=== PATIENT | female | born 1985 | race African-American/Black ===

== ENCOUNTER 2018-07-28 08:19 | Inpatient (IN) | payer SELFPAY ==
[2018-07-28 08:42] LABS: #Basophils 0.1 thou/uL (0.0-0.2); #Eosinphils 0.4 thou/uL (0.0-0.7); #Lymphocytes 2.3 thou/uL (1.20-3.40); #Monocytes 0.4 thou/uL (0.11-0.59); #Neutrophils 6.1 thou/uL (1.40-6.50); %Eosinophils 4.1 % (0.0-10.0); %Lymphocytes 24.6 % (21.0-51.0); %Monocytes 4.5 % (0.0-10.0); %Neutrophils 65.7 % (42.0-75.0); Hemoglobin 13.1 g/dL (12.0-16.0); Mean Corpuscular HGB CONC 32.6 g/dL (32.0-36.0); Mean Corpuscular Hemoglobin 28.4 pg (27.0-31.0); Mean Corpuscular Volume 87.1 fL (78.0-98.0); Mean Platelet Volume 6.8 fL (7.4-10.4); Platelet Count 460 thou/uL (130-400); RBC Distribution Width 11.9 % (11.5-14.5); White Blood Cell (WBC) Count 9.2 thou/uL (4.8-10.8)
[2018-07-28 08:49] LABS: INR-International Normal Ratio 0.9; PTT 32.9 SEC (22.9-36.1); Prothrombin Time 12.4 SEC (12.0-14.7)
[2018-07-28 08:50] LABS: BHCG - Serum Negative (NEGATIVE); Pregs Control Background? CLEAR/WHITE (CLR/WHITE); Pregs Control Bar Appear? YES (CONTROL BAR)
[2018-07-28 09:04] LABS: ALT (SGPT) 9 U/L (8-55); AST (SGOT) 13 U/L (5-34); Acetaminophen Less than 6.0 mcg/mL (10.0-30.0); Alcohol Less than 10 mg/dL (Less than 10); Alkaline Phosphatase 114 U/L (40-150); Anion Gap 13 mmol/L (10-20); BUN (Urea Nitrogen) 10 mg/dL (7.0-18.7); Bilirubin, Total 0.2 mg/dL (0.2-1.2); Calc. Creatinine Clearance 0 mL/min (70-130); Calcium 9.8 mg/dL (7.8-10.44); Carbon Dioxide 19 mmol/L (22-29); Chloride 109 mmol/L (98-107); Estimated GFR-MDRD Greater than 90; Globulin 3.3 g/dL (2.4-3.5); Glucose 77 mg/dL (70-105); Potassium 4.1 mmol/L (3.5-5.1); Protein, Total 7.3 g/dL (6.0-8.3); Salicylate Less than 8.0 mg/dL (15.0-30.0); Sodium 137 mmol/L (136-145)
[2018-07-28] MEDS ORDERED: Aspirin 325 MG TAB ONE (09:35)
--- NOTE | 2018-07-28 10:32 | CT ---
CT HEAD WITHOUT CONTRAST: Date: 07/28/18 Multiple axial tomograms obtained through the head without IV enhancement. INDICATION: Stroke alert. Left-sided weakness. FINDINGS: Ventricles have normal size and position. There is no evidence of intracranial mass or hemorrhage. No evidence of acute infarct. Sinuses and mastoids are clear. IMPRESSION: No acute findings. Findings relayed to Dr. Richey at 0832 hours. CODE CR. POS: OFF
--- NOTE | 2018-07-28 10:45 | CT ---
CTA HEAD WITH CONTRAST: Multiple axial tomograms obtained through the head following angio protocol with multiplanar reconstr uction and 3D postprocessing. INDICATION: Stroke alert. Left side weakness. FINDINGS: The intracranial internal carotid arteries are patent. M1 segment of both middle cerebral arteries ar e patent and symmetric. The M2 and M3 branches appear symmetric. Basilar artery patent. Posterior cer ebrals appear patent. IMPRESSION: Unremarkable CTA head. CTA NECK: Multiple axial tomograms obtained through neck following angio protocol with multiplanar reconstructi on and 3D postprocessing. INDICATION: Stroke alert. Left side weakness. FINDINGS: Origin of arch vessels unremarkable. Common carotid artery unremarkable bilaterally. Carotid bifurcations unremarkable bilaterally. Internal carotid arteries patent and symmetric. Vertebral arteries patent and symmetric. IMPRESSION: Unremarkable CTA neck. POS: OFF
[2018-07-28] MEDS ORDERED: Zolpidem Tartrate 5 MG TAB PO PRN (10:54)
[2018-07-28] MEDS ORDERED: Senokot S 8.6-50 MG TAB PO PRN (10:54)
[2018-07-28] MEDS ORDERED: Loperamide HCl 2 MG CAP PO PRN (10:54)
[2018-07-28] MEDS ORDERED: Ondansetron PF 4 MG/2 ML Vial IVP PRN (10:54)
[2018-07-28] MEDS ORDERED: Ondansetron ODT 4 MG TAB PO PRN (10:54)
[2018-07-28] MEDS ORDERED: Calcium Carbonate 500 MG ChewTAB PO PRN (10:54)
[2018-07-28] MEDS ORDERED: Bisacodyl 5 MG TAB PO PRN (10:54)
[2018-07-28] MEDS ORDERED: hydrALAZINE 20 MG/ML VIAL SLOW IVP PRN (10:54)
[2018-07-28 10:55] LABS: Amphetamine Not Detected (NotDetected); Barbiturates Screen Not Detected (NotDetected); Benzodiazepine Screen Not Detected (NotDetected); Cocaine Metabolite Screen Not Detected (NotDetected); Medtox Control Line Valid? VALID (VALID); Medtox Reader # READER 4; Methadone Not Detected (NotDetected); Methamphetamine Not Detected (NotDetected); Opiate Screen Not Detected (NotDetected); Oxycodone Screen Not Detected (NotDetected); Phencyclidine (PCP) Not Detected (NotDetected); THC/Cannabinoid Screen Detected (NotDetected); Tricyclic Screen Not Detected (NotDetected)
--- NOTE | 2018-07-28 11:14 | HP ---
PRIMARY CARE PHYSICIAN: [facility] Call Admission. REASON FOR ADMISSION: Suspected stroke-like symptoms. HISTORY OF PRESENT ILLNESS: A 33-year-old female, who has no past medical history, who came to emergency room for stroke alert. The patient was having left-sided weakness, numbness, which was started when she woke up this morning. She was also experiencing chest pain, shortness of breath. She was hyperventilating and she was drooling by . In the emergency room, CT brain and [place] was negative. As per the ER physician when they reevaluated her, at that time, the patient's symptomatology was improving and that is why, she was not a candidate for any tPA. The patient reports that she has previous history of Guillain-[place], but she denies any paresthesia. She denies any recent upper or lower respiratory infection. She denies any GI symptoms. She denies any UTI symptoms. REVIEW OF SYSTEMS: CONSTITUTIONAL: Negative for weight loss or gain, ability to conduct usual activities. SKIN: Negative for rash, itching. EYES: Negative for double vision, pain. ENT/MOUTH: Negative for nose bleeding, neck stiffness, pain, tenderness. CARDIOVASCULAR: Negative for palpitations, dyspnea on exertion, orthopnea. RESPIRATORY: Negative for shortness of breath, wheezing, cough, hemoptysis, fever or night sweats. GASTROINTESTINAL: Negative for poor appetite, abdominal pain, heartburn, nausea , vomiting, constipation, or diarrhea. GENITOURINARY: Negative for urgency, frequency, dysuria, nocturia. MUSCULOSKELETAL: Negative for pain, swelling. NEUROLOGIC/PSYCHIATRIC: Negative for anxiety, depression. ALLERGY/IMMUNOLOGIC: Negative for skin rash, bleeding tendency. Please see my HPI for pertinent positive and negative. All other review of systems reviewed and negative except as mentioned in HPI. PAST MEDICAL HISTORY: Per the patient, she had history of Guillain-[place] syndrome. PAST PSYCHIATRIC HISTORY: Anxiety disorder. PAST SURGICAL HISTORY: Reviewed and negative. SOCIAL HISTORY: The patient lives at home by herself with her daughter. No history of tobacco, alcohol, or illicit drug abuse. FAMILY HISTORY: No family history of coronary artery disease, stroke, or cancer , but family history of congestive heart failure. ALLERGIES: SULFA DRUGS. CURRENT HOME MEDICATIONS: The patient is not on any chronic prescribed medication. EMERGENCY ROOM COURSE: The patient is given aspirin. PHYSICAL EXAMINATION: VITAL SIGNS: On arrival, blood pressure 108/88, pulse 83, respiratory rate 19, temperature 97.9, saturation 100% on room air. Weight 109.1 kg. GENERAL: The patient is currently alert, awake. No obvious acute distress. HEENT: Head; normocephalic, atraumatic. Eyes; pupils round, reactive to light. Extraocular muscle intact. ENT; oropharynx within normal limits. Moist mucous membranes. No oral lesion. No pharyngeal erythema. No exudate. NECK: Supple. No JVD. No thyromegaly. No carotid bruit. No jugular venous distention. LUNGS: Clear to auscultation without any rhonchi or rales. CARDIAC: S1, S2 regular. No murmur. No gallop. No rub. ABDOMEN: Soft. Obesity present. Bowel sounds present. Nontender. Nondistended. No organomegaly. No mass. No suprapubic tenderness. BACK EXAMINATION: Unremarkable. No CVA tenderness. EXTREMITIES: Upper extremity, passive movement of all joints are normal. Lower extremity, no edema. Good distal pulsation. SKIN: No skin rash. HEMATOLOGICAL SYSTEM: No lymphadenopathy. NEUROLOGIC: The patient is alert, awake, follows command, in no obvious acute distress. Cranial nerves nerve 2 through 12 intact. Motor, the patient has subjective weakness on the left side, upper and lower extremity, but consistency is variable. Right lower extremity within normal limit and right upper extremity within normal limit. Sensation, normal both side, but subjectively less on the left side. Plantar bilateral flexor reflexes symmetrical. SIGNIFICANT LABORATORY DATA: CT brain based on my review, no acute intracranial process. CT [place], no stenosis. EKG normal sinus rhythm. CBC; WBC 9.2, hemoglobin 13.1, platelet 460. INR 0.9. Sodium 137, potassium 4.1, chloride 109, carbon dioxide 19, BUN 10, creatinine 0.70, glucose 77, calcium 9.8. LFT; AST 13, ALT 9, alkaline phosphatase 114, albumin 4.0. test negative. Cardiac enzyme negative. Lactic acid 2.5. Serum drug screen negative. ASSESSMENT AND PLAN: Impression: 1. Stroke-like symptoms. I am suspecting, this patient might have underlying conversion disorder. She has left-sided upper and lower extremity weakness, but examination finding is inconsistent and she does not have any finding. Her CT brain and [place] is also negative, but we will try to obtain MRI brain to rule out any structural pathology and we will consult Neurology for their opinion. Meanwhile, we will continue with aspirin 81 mg p.o. daily. Check lipid profile for risk stratification and monitor neurologically and monitor on Telemetry floor. We will also obtain echocardiography as a part of stroke workup. 2. Obesity. Dietary education given. Weight loss education given. Healthy lifestyle measure discussed with the patient. 3. Anxiety disorder. We will add lorazepam 0.5 mg p.o. q.4 hourly p.r.n. 4. Deep venous thrombosis prophylaxis not needed because we are expecting discharge in 24 to 48 hours. 5. Gastrointestinal prophylaxis. Pepcid 20 mg p.o. b.i.d. CODE STATUS: The patient is full code. The patient does not have any surrogate decision maker. DISPOSITION PLAN: Based on further investigation, we will consider discharging her tomorrow. We will observe overnight and monitor on Telemetry floor. Job ID: [id number] MTDD
[2018-07-28] MEDS ORDERED: ISOVUE-370 76%-LOCM 1 ML ONE (11:30)
[2018-07-28 12:36] LABS: Lactic Acid 1.1 mmol/L (0.5-2.2)
[2018-07-28] MEDS ORDERED: Acetaminophen 325 MG TAB ONE (12:49)
[2018-07-28] MEDS ORDERED: Ketorolac Tromethamine 30 MG/ML VIAL ONE (12:56)
[2018-07-28] MEDS ORDERED: Ketorolac Tromethamine 30 MG/ML VIAL IVP SCH (13:15)
[2018-07-28 15:09] VITALS: BMI 37.0
--- NOTE | 2018-07-28 16:06 | MRI ---
MRI OF BRAIN WITHOUT CONTRAST 07/28/18 HISTORY: TIA. Left sided weakness. CORRELATION: CT brain and CTA brain and neck from earlier today. FINDINGS: No restricted diffusion is seen. No evidence of infarct, hemorrhage, midline shift or abnormal extra- axial fluid collections seen. The ventricular size is normal and the basilar cisterns patent. No sign al abnormalities are seen on the highly sensitive FLAIR images. No blood products are noted on the gr adient echo sequences. No tonsillar herniation seen. The visualized paranasal sinuses and mastoid air cells are well aerated. IMPRESSION: Unremarkable nonenhanced MRI of the brain. POS: [facility]
[2018-07-28] MEDS: Acetaminophen 325 MG TAB PO PRN ×2 (17:20→21:24)
[2018-07-28] MEDS ORDERED: Atorvastatin Calcium 10 MG TAB PO SCH (21:00)
[2018-07-28] MEDS: Famotidine 20 MG TAB PO SCH (21:23)
[2018-07-29 05:57] LABS: Cardiac Risk 4.5 (Less than 4.5)
[2018-07-29] MEDS: Acetaminophen 325 MG TAB PO PRN (08:18)
[2018-07-29] MEDS: Famotidine 20 MG TAB PO SCH (08:18)
--- NOTE | 2018-07-29 09:44 | DIS ---
DATE OF ADMISSION: 07/28/2018 DATE OF DISCHARGE: 07/29/2018 PRIMARY CARE PHYSICIAN: [facility] Call Admission. DISCHARGE DISPOSITION: Home. PRIMARY DISCHARGE DIAGNOSIS: Nonspecific weakness of extremity, improved. SECONDARY DISCHARGE DIAGNOSES: 1. Obesity. 2. Anxiety disorder. PRIMARY PROCEDURE/OPERATION: None. RADIOLOGICAL INVESTIGATION: CT brain negative. CT [place] angiography negative. MRI brain normal. SIGNIFICANT LABORATORY DATA: Hemoglobin 13.1, INR 0.9, creatinine 0.70, LDL 86. LFT normal. Urine drug screen positive for cannabinoids. Serum drug screen negative. DISCHARGE MEDICATIONS: The patient does not need any prescription medication upon discharge. CONTRAINDICATION: None. CODE STATUS: Full code. INPATIENT CONSUMER INSIGHTS INTERN: Dr. Liz Trevino. TEST RESULT PENDING ON DISCHARGE: Echocardiography. ALLERGIES: 1. AMOXACILLIN. 2. PENICILLIN. 3. SULFA. DISCHARGE PLAN: Posthospital, the patient will follow up with primary care physician. HOSPITAL COURSE: A 33-year-old female with above-mentioned medical problem, who was brought to ER for stroke alert. The patient was subjectively complaining of left side of upper and lower extremity weakness. In the emergency room [facility], CT brain was negative. CT [place] was also negative. The patient's symptomatology already started improving in the emergency room. She was not a candidate for tPA. This patient when I examined at that time, I did not see any real neurological finding and I was suspecting conversion disorder. We admitted to observation floor. We did MRI brain and echocardiography as a part of stroke workup. Echocardiography result is pending. MRI is normal. Neurology will see this patient. Today, the patient is back to normal and she is doing much better. If Neurology is okay, then we will consider discharging her home later on today. This patient's status was observation while in hospital. I have seen and examined the patient bedside today. Her neurological examination is unremarkable as well as cardiac and lung examination is also normal. She does not need any medications. She is not admitted for any stroke. Job ID: [id number]
--- NOTE | 2018-07-29 10:00 | PDOC.PN ---
- Subjective Encounter Start Date: 07/29/18 Encounter Start Time: 09:50 Patient seen and examined. No new complaints. No overnight events - Objective Resuscitation Status - Order Detail: 07/28/18 10:52 Resuscitation Status Routine Resuscitation Status: FULL: Full Resuscitation MAR Reviewed: Yes Vital Signs & Weight: Vital Signs (12 hours) Temp Pulse Resp BP Pulse Ox 07/29/18 07:57 97.6 F 79 16 96/53 L 100 07/29/18 04:00 97.9 F 76 18 99/58 L 98 07/29/18 00:00 98 F 78 18 110/57 L 96 Weight Weight 229 lb 8 oz I&O: 07/28/18 07/29/18 07/30/18 06:59 06:59 06:59 Intake Total 540 300 Output Total 450 Balance 90 300 Result Diagrams: 07/28/18 08:34 07/28/18 08:34 Phys Exam - Physical Examination Constitutional: NAD HEENT: PERRLA, moist MMs, sclera anicteric Neck: no JVD, supple Respiratory: no wheezing, no rales, no rhonchi Cardiovascular: RRR, no significant murmur, no rub Gastrointestinal: soft, non-tender, no distention, positive bowel sounds Musculoskeletal: no edema, pulses present Neurological: non-focal, normal sensation Lymphatic: no nodes Psychiatric: normal affect, A&O x 3 Skin: no rash, normal turgor Dx/Plan (1) Weakness of extremity Code(s): R29.898 - OTH SYMPTOMS AND SIGNS INVOLVING THE MUSCULOSKELETAL SYSTEM Status: Acute (2) Obesity (BMI 30-39.9) Code(s): E66.9 - OBESITY, UNSPECIFIED Status: Chronic - Plan cont current plan of care * continue current medical treatment * symptomatic treatment * see discharge summery. Review of Systems - Review of Systems ENT: negative: Ear Pain, Ear Discharge, Nose Pain, Nose Discharge, Nose Congestion, Mouth Pain, Mouth Swelling, Throat Pain, Throat Swelling, Other Respiratory: negative: Cough, Dry, Shortness of Breath, Hemoptysis, SOB with Excertion, Pleuritic Pain, Sputum, Wheezing Cardiovascular: negative: chest pain, palpitations, orthopnea, paroxysmal nocturnal dyspnea, edema, light headedness, other Gastrointestinal: negative: Nausea, Vomiting, Abdominal Pain, Diarrhea, Constipation, Melena, Hematochezia, Other Genitourinary: negative: Dysuria, Frequency, Incontinence, Hematuria, Retention , Other Musculoskeletal: negative: Neck Pain, Shoulder Pain, Arm Pain, Back Pain, Hand Pain, Leg Pain, Foot Pain, Other Skin: negative: Rash, Lesions, Caleb, Bruising, Other - Medications/Allergies Allergies/Adverse Reactions: Allergies Allergy/AdvReac Type Severity Reaction Status Date / Time amoxicillin Allergy Verified 07/28/18 15:07 oats Allergy Verified 07/28/18 15:07 Penicillins Allergy Verified 07/28/18 15:07 strawberry Allergy Verified 07/28/18 15:07 Sulfa (Sulfonamide Allergy Verified 07/28/18 15:07 Antibiotics) Medications: Current Medications Acetaminophen (Tylenol) 650 mg PO Q4H PRN PRN Reason: Headache/Fever/Mild Pain (1-3) Last Admin: 07/29/18 08:18 Dose: 650 mg Atorvastatin Calcium (Lipitor) 10 mg PO [facility] Last Admin: 07/28/18 21:23 Dose: 10 mg Bisacodyl (Dulcolax) 10 mg PO DAILYPRN PRN PRN Reason: Constipation Calcium Carbonate (Tums) 1,000 mg PO Q4H PRN PRN Reason: Heartburn or Indigestion Famotidine (Pepcid) 20 mg PO BID [facility] Last Admin: 07/29/18 08:18 Dose: 20 mg Hydralazine HCl (Apresoline) 10 mg SLOW IVP Q4H PRN PRN Reason: SBP Greater Than 180 Loperamide HCl (Imodium) 2 mg PO PRN PRN PRN Reason: Diarrhea/Loose Stools Ondansetron HCl (Zofran Odt) 4 mg PO Q6H PRN PRN Reason: Nausea/Vomiting Ondansetron HCl (Zofran) 4 mg IVP Q6H PRN PRN Reason: Nausea/Vomiting Senna/Docusate Sodium (Senokot S) 2 tab PO BID PRN PRN Reason: Constipation Sodium Chloride (Flush - Normal Saline) 10 ml IVF PRN PRN PRN Reason: Saline Flush Zolpidem Tartrate (Ambien) 5 mg PO HSPRN PRN PRN Reason: Insomnia
--- NOTE | 2018-07-29 11:48 | MRI ---
MRI CERVICAL SPINE WITHOUT CONTRAST: Date: 07/29/18 Multiplanar, multisequential imaging of cervical spine obtained. INDICATION: Left side weakness. FINDINGS: Cervical vertebra maintain height and alignment. Mild degenerative changes are seen with anterior ost eophytes noted at C4-5 and C5-6. Disc spaces are preserved. No significant abnormality at C2-3. At C3-4, mild posterior spondylosis indent the anterior thecal sac and abut the anterior cord. No sig nificant central canal or foraminal stenosis. At C4-5, mild disc bulge and spondylosis efface the anterior subarachnoid space. No cord impingement. No central canal or foraminal stenosis. At C5-6, very mild disc bulge and spondylosis mildly efface the anterior subarachnoid space. No cord impingement. No central canal or foraminal stenosis. At C6-7, no significant abnormality. Cervical cord signal is normally maintained on T2 sequences. IMPRESSION: There are mild degenerative changes in the mid cervical spine, most prominent at C3-4, C4-5, and C5-6 , as described above. POS: OFF
[2018-07-29 12:18] VITALS: TEMP 97.9
[2018-07-29 15:43] VITALS: BP 139/79
--- NOTE | 2018-07-29 23:29 | CON ---
DATE OF CONSULTATION: CHIEF COMPLAINT: Weakness of the left side. 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 She had shortness of breath. She sat down and her coworkers at the multiple stores sideways and one of the employees thought she was having a stroke and she thought she was also having chest pain and her left side went numb and weak. She has improved since the admission. She has chronic back pain. If someone presses on the left side of her chest, it hurts on the back. Her left leg is weak. She could not walk. She has been having some pain in her knees as well. She could not open her eyes most of the day yesterday. Her eyes were closed and red hot. 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 PREVIOUS SURGICAL HISTORY: She had right knee surgery, breast reduction surgery at age 17. FAMILY HISTORY: Negative for CVA. Mom was in the room and she stated she was healthy. On maternal side of the family, they have history of congestive heart failure, coronary artery disease, sudden due to NH. On paternal side, there are no health issues. SOCIAL HISTORY: She has smoked in the past. She quit one year ago. She was a heavy smoker. She would smoke one pack every 2-3 days. 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 ALLERGIES: SHE IS ALLERGIC TO AMOXICILLIN, OATS, PENICILLIN, STRAWBERRY, AND SULFA DRUGS. REVIEW OF SYSTEMS: PULMONARY: Positive for shortness of breath. CARDIAC: Positive for chest pain. GI: Negative for nausea, vomiting, or diarrhea. GENITOURINARY: Negative for any bladder incontinence. NEUROLOGICAL: Positive for left-sided numbness and weakness. HEMATOLOGIC: Negative for any bleeding diathesis. CURRENT LABORATORY WORKUP: White count 9.2, hemoglobin 13.1, hematocrit 40.1, and platelet count 460. Chemistry; sodium 137, potassium 4.1, chloride 109, bicarb 19, BUN 10, creatinine 0.70, and glucose 77. Lactic acid 2.5. AST 13, ALT 9, alkaline phosphatase 114, triglyceride and cholesterol within normal limits. IMAGING REPORTS: She had a CT angiogram with [facility] [place] [facility] [place] and all of that was unremarkable. Brain MRI did not show any evidence of stroke. I also requested a cervical spine MRI after examined her earlier today and there is mild degenerative changes most prominent at C3-C4, C4-C5, and C5-C6 and echocardiogram also was within normal limits. PHYSICAL EXAMINATION: VITAL SIGNS: Temperature 97.6, pulse 79, respiratory rate 16, O2 sats 100%, blood pressure 96/53. GENERAL APPEARANCE: Well-built, well-nourished lady, who is comfortable in bed. CHEST: Clear vesicular breathing. CARDIOVASCULAR: S1, S2 heard. No murmurs. ABDOMEN: Soft and nontender. No organomegaly noted. NEUROLOGICAL: Bulk normal. Tone normal. Strength 5/5 on the right side, left side 4/5 in the lower limb and proximal upper limb left was 4/5, distal 3/5. Muscle groups tested are iliopsoas, hamstrings, quadriceps, ankle dorsiflexion, plantar flexion, deltoid, biceps, triceps, wrist extension and flexion, finger extension and flexion bilaterally. Reflexes 2+ throughout and sensory and cerebellar normal. Cerebellar; [id number] and [id number] normal. Sensory; touch is normal. Gait not tested. IMPRESSION: The patient is a 33-year-old lady with left-sided weakness, unclear what this episode was. 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 Her stroke risk factors include hypertension and obesity and a family history of cardiac disease. Her current examination is essentially normal except for mild weakness on the left side. At this time, diagnosis is best described as transient ischemic attacks or very small ischemic event not visible on MRI. RECOMMENDATIONS: Please have this patient followup with the neurologist as outpatient. She can take aspirin with statin for stroke prophylaxis. Job ID: [id number]
== END 2018-07-29 15:29 | disposition home or self-care (01) | DRG 556 ==
LOC: ERS 08:19 → ERHOLD 09:59 → 2SE 14:49
PROVIDERS: ADMIT Internal Medicine; ATTEND Internal Medicine
DX: R29.898 Other symptoms and signs involving the musculoskeletal system (principal); F41.9 Anxiety disorder, unspecified; E66.9 Obesity, unspecified; Z88.2 Allergy status to sulfonamides; Z79.899 Other long term (current) drug therapy; Z88.0 Allergy status to penicillin; Z91.018 Allergy to other foods; Z68.37 Body mass index [BMI] 37.0-37.9, adult; Z98.890 Other specified postprocedural states; Z87.891 Personal history of nicotine dependence
CPT/HCPCS: 36415; 36416; 70450; 70496; 70498; 70551; 72141; 80053; 80061; 80306; 80307; 83605; 84484; 84703; 85025; 85610; 85730; 93005; 93306; J1885; J2997; Q9966